=== PATIENT | female | born 1995 | race Caucasian/White ===

== ENCOUNTER 2024-04-07 18:45 | Emergency (ER) | payer BC ==
--- NOTE | 2024-04-07 18:57 | ED ---
General Adult HPI - General Stated complaint: SOB,REBEKAH,sore throat, 18 weeks Time Seen by Provider: 04/07/24 18:55 Source: patient, RN notes reviewed - History of Present Illness Initial comments: This is a 28-year-old female, at 18 weeks gestation, with no significant medical history who is presenting to the emergency room with referral from urgent care for complaint of URI symptoms and tachycardia. States over the past 3 to 4 days she has been experiencing rhinorrhea, chest heaviness, productive cough, congestion, sore throat. She denies fevers and chills. She denies abdominal pain, vaginal bleeding or cramping. Last dose of Tylenol was at 1500 - Related Data Previous Rx's Medication Instructions Recorded Amoxicillin 875 mg PO Q12HR #20 tablet 04/07/24 Allergies Allergy/AdvReac Type Severity Reaction Status Date / Time No Known Allergies Allergy Verified 04/07/24 19:19 Review of Systems ROS Statement: Those systems with pertinent positive or pertinent negative responses have been documented in the HPI. ROS Other: All systems not noted in ROS Statement are negative. General Exam - General Exam Comments Initial Comments: Visual Physical Exam Vital signs reviewed General: Well-appearing, nontoxic, no acute distress. Head: Normocephalic, atraumatic Eyes: PERRLA, EOMI ENT: Airway patent Chest: Nonlabored breathing Skin: No visual rash, normal skin tone Neuro: Alert and oriented 3 Musculoskeletal: No gross abnormalities General appearance: alert, in no apparent distress ENT exam: Present: other (posterior oropharynx erythema and cobblestoning) Expanded Throat exam: negative: tonsillomegaly, tonsillar exudate, R peritonsillar mass, L peritonsillar mass Neck exam: Present: normal inspection. Absent: tenderness, meningismus, lymphadenopathy Respiratory exam: Present: normal lung sounds bilaterally. Absent: respiratory distress, wheezes, rales, rhonchi, stridor Cardiovascular Exam: Present: regular rate, normal rhythm, normal heart sounds. Absent: systolic murmur, diastolic murmur, rubs, gallop, clicks Extremities exam: Present: normal inspection, full ROM, normal capillary refill. Absent: tenderness, pedal edema, joint swelling, calf tenderness Back exam: Present: normal inspection Course Vital Signs 04/07/24 04/07/24 19:16 20:00 Temperature 99.4 F 99.8 F H Pulse Rate 126 H 124 H Respiratory 20 18 Rate Blood Pressure 111/69 146/87 O2 Sat by Pulse 98 96 Oximetry Medical Decision Making - Medical Decision Making Was pt. sent in by a medical professional or institution (DEBORAH Clarke, BLENDER OPERATOR, urgent care, hospital, or intermediate...) When possible be specific @ -Patient was advised by urgent care to report to emergency room for further evaluation of tachycardia and URI symptoms. Did you speak to anyone other than the patient for history (EMS, parent, family, police, friend...)? What history was obtained from this source @ -No Did you review nursing and triage notes (agree or disagree)? Why? @ -I reviewed and agree with nursing and triage notes Were old charts reviewed (outside hosp., previous admission, EMS record, old EKG, old radiological studies, urgent care reports/EKG's, intermediate records)? Report findings @ -No old charts were reviewed Differential Diagnosis (chest pain, altered mental status, abdominal pain women, abdominal pain men, vaginal bleeding, weakness, fever, dyspnea, syncope, headache, dizziness, GI bleed, back pain, seizure, CVA, palpatations, mental health, musculoskeletal)? @ -COVID 19, RSV, influenza, pneumonia, acute bronchitis, URI, this list is not all inclusive EKG interpreted by me (3pts min.). @ -None X-rays interpreted by me (1pt min.). @ -Chest x-ray no acute cardiopulmonary process or disease CT interpreted by me (1pt min.). @ -None done U/S interpreted by me (1pt. min.). @ -None done What testing was considered but not performed or refused? (CT, X-rays, U/S, labs)? Why? @ -None What meds were considered but not given or refused? Why? @ -None Did you discuss the management of the patient with other professionals (professionals i.e. DEBORAH Clarke, BLENDER OPERATOR, lab, RT, psych nurse, social insurance analyst, legal department manager, teacher, chief accounting officer, case operator)? Give summary @ -No Was smoking cessation discussed for >3mins.? @ -No Was critical care preformed (if so, how long)? @ -No Were there social determinants of health that impacted care today? How? (Homelessness, low income, unemployed, alcoholism, drug addiction, transportation, low edu. Level, literacy, decrease access to med. care, residential, rehab)? @ -No Was there de-escalation of care discussed even if they declined (Discuss DNR or withdrawal of care, Hospice)? DNR status @ -No What co-morbidities impacted this encounter? (DM, HTN, Smoking, COPD, CAD, Cancer, CVA, ARF, Chemo, Hep., AIDS, mental health diagnosis, sleep apnea, morbid obesity)? @ -None Was patient admitted / discharged? Hospital course, mention meds given and route, prescriptions, significant lab abnormalities, going to OR and other pertinent info. @ -Discharge. 28 year old female presented to the emergency room with URI symptoms. On arrival patient to be tachycardic with heart rate of 126 and febrile with a temperature of 99.8. She is noted to have posterior oropharynx erythema with no signs of tonsillar mass or exudates. She is provided with Tylenol and IV fluids. She is tested positive for influenza A and strep. She is provided with initial dose of amoxicillin in the emergency department. Supportive treatment discussed at bedside. Case discussed with Dr. Rainey Undiagnosed new problem with uncertain prognosis? @ -No Drug Therapy requiring intensive monitoring for toxicity (Heparin, Nitro, Insulin, Cardizem)? @ -No Were any procedures done? @ -No Diagnosis/symptom? @ -Influenza A, strep pharyngitis Acute, or Chronic, or Acute on Chronic? @ -Acute Uncomplicated (without systemic symptoms) or Complicated (systemic symptoms)? @ -Uncomplicated Side effects of treatment? @ -No Exacerbation, Progression, or Severe Exacerbation? @ -No Poses a threat to life or bodily function? How? (Chest pain, USA, CT, pneumonia, PE, COPD, DKA, ARF, appy, cholecystitis, CVA, Diverticulitis, Homicidal, Suicidal, threat to staff... and all critical care pts) @ -No - Lab Data Lab Results 04/07/24 04/07/24 Range/Units 19:18 19:18 Influenza Type A (PCR) Detected A (Not Detectd) Influenza Type B (PCR) Not Detected (Not Detectd) RSV (PCR) Not Detected (Not Detectd) SARS-CoV-2 (PCR) Not Detected (Not Detectd) Group A Strep (PCR) DETECTED A (Not Detectd) Disposition Clinical Impression: Strep pharyngitis, Influenza A Disposition: HOME SELF-CARE Condition: Good Instructions (If sedation given, give patient instructions): Strep Throat (ED), Influenza (ED) Additional Instructions: Please return to the Emergency Department if symptoms worsen or any other concerns. Complete full course of antibiotics as prescribed. Continue Tylenol as needed for body aches and fevers. Increase hydration. Prescriptions: Amoxicillin 875 mg PO Q12HR #20 tablet Is patient prescribed a controlled substance at d/c from ED?: No Referrals: None,Stated [Primary Care Provider] - 1-2 days Time of Disposition: 21:23
--- NOTE | 2024-04-07 19:39 | XR ---
EXAMINATION TYPE: XR chest 2V DATE OF EXAM: 04/07/2024 7:32 PM COMPARISON: None CLINICAL INDICATION: Female, 28 years old with history of REBEKAH, productive cough, congestion; [facility] TECHNIQUE: XR chest 2V Frontal and lateral views of the chest. FINDINGS: Lungs/Pleura: There is no evidence of pleural effusion, focal consolidation, or pneumothorax. Pulmonary vascularity: Unremarkable. Heart/mediastinum: Cardiomediastinal silhouette is unremarkable. Musculoskeletal: No acute osseous pathology. Other findings: None IMPRESSION: No acute cardiopulmonary disease/process. [facility], , 04/07/2024 7:37 PM
[2024-04-07 19:58] LABS: Influenza A Detected (Not Detectd); Influenza B Not Detected (Not Detectd); RSV Not Detected (Not Detectd)
[2024-04-07 20:01] VITALS: RESP 18; TEMP 99.8
[2024-04-07] MEDS: ACETAMINOPHEN TAB 500 MG TAB PO STA (21:03)
[2024-04-07] MEDS: SODIUM CHLORIDE 0.9% 1,000 ML IV STA (21:04)
[2024-04-07] MEDS: AMOXICILLIN 875 MG TAB PO STA (21:23)
[2024-04-07 22:16] VITALS: BP 142/87; PULSE 114
== END 2024-04-07 22:15 | disposition home or self-care (01) ==
LOC: EC 18:45
DX: O99.512 Diseases of the respiratory system complicating pregnancy, second trimester (principal); J10.1 Influenza due to other identified influenza virus with other respiratory manifestations; O98.512 Other viral diseases complicating pregnancy, second trimester; J02.0 Streptococcal pharyngitis; Z3A.18 18 weeks gestation of pregnancy
CPT/HCPCS: 71046; 87636; 87651; 96360; 99285

== ENCOUNTER 2024-07-14 11:09 | Outpatient (CLI) | payer BC ==
[2024-07-14 12:03] LABS: Creatinine,Urine Random 55.3 mg/dL; Protein/Creatinine Ratio,Urine 0.922
[2024-07-14 12:09] LABS: Basophils # (A) 0.06 10*3/uL (0.00-0.10); Basophils % (A) 0.5 %; Eosinophils # (A) 0.15 10*3/uL (0.04-0.35); Eosinophils % (A) 1.3 %; HCT 37.5 % (37.2-46.3); HGB 12.4 g/dL (12.0-15.0); Lymphocytes # (A) 1.44 10*3/uL (0.90-5.00); Lymphocytes % (A) 12.7 %; MCH 28.4 pg (27.0-32.0); MCHC 33.1 g/dL (32.0-37.0); Mean Platelet Volume 10.5 fL (9.5-12.2); Monocytes # (A) 0.67 10*3/uL (0.20-1.00); Monocytes % (A) 5.9 %; Neutrophils # (A) 8.88 10*3/uL (1.80-7.70); Neutrophils % (A) 78.5 %; Platelet Count 262 10*3/uL (140-440); RBC 4.36 10*6/uL (4.10-5.20); RDW 12.9 % (11.5-14.5); WBC 11.33 10*3/uL (4.50-10.00)
[2024-07-14 12:22] LABS: ALT 14 U/L (4-34); AST 21 U/L (14-36); African American GFR (CKD) >90 (>60 ml/min/1.73 sqM); Blood Urea Nitrogen 7 mg/dL (7-17); LDH 181 U/L (120-246); Non-African American GFR(CKD) >90 (>60 ml/min/1.73 sqM); Uric Acid 3.2 mg/dL (3.7-7.4)
[2024-07-14 13:14] VITALS: BP 130/67; PULSE 82; RESP 16; TEMP 97.9
[2024-07-14 14:49] LABS: Appearance,Urine Clear (Clear); Bacteria,Urine Rare /hpf; Bilirubin,Urine Negative (Negative); Blood,Urine Small (Negative); Color,Urine Colorless; Glucose,Urine (UA) Negative (Negative); Ketones,Urine Negative (Negative); Leukocyte Esterase,Urine Large (Negative); Mucus,Urine Rare /hpf; Nitrite,Urine Negative (Negative); PH, Urine 6.5 (5.0-8.0); Protein,Urine Trace (Negative); RBC,Urine <1 /hpf (0-5); Specific Gravity,Urine 1.011 (1.001-1.035); Squamous Epithelial Cell,Urine 2 /hpf (0-4); Urobilinogen,Urine <2.0 mg/dL (<2.0); WBC,Urine 4 /hpf (0-5)
== END 2024-07-14 13:00 | disposition home or self-care (01) ==
LOC: FBPOP 11:09
PROVIDERS: ATTEND Obstetrics & Gynecology
DX: O13.9 Gestational [pregnancy-induced] hypertension without significant proteinuria, unspecified trimester (principal); Z3A.00 Weeks of gestation of pregnancy not specified
CPT/HCPCS: 59025; 81001; 82565; 82570; 83615; 84156; 84450; 84460; 84520; 84550; 85025